=== PATIENT | female | born 1980 | race Two or more races ===

== ENCOUNTER → 2023-10-09 10:12 | Outpatient (REF) | payer OTHER, SELFPAY | LOC: HWRAD 10:12 | PROVIDERS: ATTENDING PHYSICIAN Family Medicine | DX: N83.209 Unspecified ovarian cyst, unspecified side (principal) | CPT/HCPCS: 76830; 76856 ==

== ENCOUNTER 2024-03-19 14:40 | Emergency (ER) | payer OTHER, SELFPAY ==
[2024-03-19 14:50] VITALS: BP 148/93
--- NOTE | 2024-03-19 15:00 | ED.PDOC.TRB ---
ED Provider Triage
<Sy Brasher Jr., PA-C - Last Filed: 03/19/24 15:01>
-
Patient seen by provider in Triage?: Seen in Triage
A medical screening examination has been initiated by a qualified medical provider. Based on the assessment performed at this time, it has been determined that an emergent medical condition may exist and the patient has been informed that further
medical evaluation and possible additional diagnostic testing may be needed.
HPI: This is a medical evaluation conducted in person to initiate diagnostic evaluation and provide initial therapeutics. Please see further documentation by the treating clinician.
GENERAL: Alert ,tearful
EYE: No visual abnormalities.
NECK: Trachea midline
ENT: No visible abnormalities.
LUNGS: No acute respiratory distress
NEUROLOGICAL: Alert and oriented
SKIN: no visible lesions.
MUSCULOSKELETAL: Moving extremities normally
PSYCH: Normal and appropriate interaction.
43-year-old female presenting to the emergency department today with concerns of 1 day of pelvic discomfort. Having heavy bleeding associated with what she believes is her menstrual cycle. Has had some discomfort with her cycles over the past few
months alternate fibroids. Today is much worse than usual. Last dose of Motrin yesterday. Here she does appear visibly uncomfortable no belly pain otherwise on examination. Patient will likely need ultrasound. Bleeding for further assessment
otherwise labs ordered as well.
<FANTA Garcia - Last Filed: 03/19/24 21:10>
-
A medical screening examination has been initiated by a qualified medical provider. Based on the assessment performed at this time, it has been determined that an emergent medical condition may exist and the patient has been informed that further
medical evaluation and possible additional diagnostic testing may be needed.
HPI: This is a medical evaluation conducted in person to initiate diagnostic evaluation and provide initial therapeutics. Please see further documentation by the treating clinician.
GENERAL: Alert ,tearful
EYE: No visual abnormalities.
NECK: Trachea midline
ENT: No visible abnormalities.
LUNGS: No acute respiratory distress
NEUROLOGICAL: Alert and oriented
SKIN: no visible lesions.
MUSCULOSKELETAL: Moving extremities normally
PSYCH: Normal and appropriate interaction.
43-year-old female presenting to the emergency department today with concerns of 1 day of pelvic discomfort. Having heavy bleeding associated with what she believes is her menstrual cycle. Has had some discomfort with her cycles over the past few
months alternate fibroids. Today is much worse than usual. Last dose of Motrin yesterday. Here she does appear visibly uncomfortable no belly pain otherwise on examination. Patient will likely need ultrasound. Bleeding for further assessment
otherwise labs ordered as well.
I did not evaluate provider in triage , Deanna Cherry NP
[2024-03-19] MEDS: TORADOL 15 MG IV (15:12)
[2024-03-19] MEDS: NSS 1000 IV (15:13)
[2024-03-19 15:15] LABS: % Basophils 0.3 % (0-2); % Immature Granulocytes 0.4 % (0-0.5); % Lymphocytes 31.1 % (20.5-51.1); % Monocytes 6.7 % (1.7-9.3); % Neutrophils 60.5 % (42.2-75.2); Absolute Eosinophils 0.1 10^3/uL (0-0.7); Absolute Lymphocytes 2.5 10^3/uL (1.2-3.4); Absolute Monocytes 0.5 10^3/uL (0.1-0.6); Absolute Neutrophils 4.8 10^3/uL (1.4-6.5); Hematocrit 36.6 % (37.0-47.0); Hemoglobin 12.6 g/dL (12.0-16.0); Mean Corp Hgb Conc. 34.4 g/dL (33.0-37.0); Mean Corpuscular Hgb 29.6 pg (27.0-31.0); Mean Corpuscular Volume 85.9 fL (81.0-99.0); Mean Platelet Volume 10.8 fL (7.4-10.4); Nucleated Red Blood Cells % 0 %; Platelet Count 255 10^3/uL (130-400); Red Blood Cell Count 4.26 10^6/uL (4.20-5.40); Red Cell Dist. Width 12.7 % (11.5-14.5); White Blood Cell Count 7.9 10^3/uL (4.8-10.8)
[2024-03-19 15:28] LABS: HCG, Serum Qualitative Screen Negative
[2024-03-19 15:33] LABS: ALT (SGPT) 13 U/L (0-35); AST (SGOT) 23 U/L (14-36); Albumin 4.8 g/dl (3.5-5.0); Alkaline Phosphatase 77 U/L (38-126); Blood Urea Nitrogen 7 mg/dl (7-17); Calcium 10.3 mg/dl (8.4-10.2); Carbon Dioxide 23 mmol/L (22-30); Chloride 105 mmol/L (98-107); Glucose 101 mg/dl (70-99); Potassium 4.4 mmol/L (3.5-5.1); Sodium 140 mmol/L (135-145); Total Bilirubin 0.5 mg/dl (0.2-1.3); Total Protein 7.5 g/dl (6.3-8.2); eGFR > 60.00
[2024-03-19 16:00] VITALS: BP 115/78
[2024-03-19] MEDS: NSS IV ×3 (16:30)
[2024-03-19 16:35] LABS: Urine Albumin Trace (Neg - Trace); Urine Bilirubin Negative (Negative); Urine Character Clear (Clear); Urine Glucose Negative (Negative); Urine Ketone Negative (Negative); Urine Leukocyte Negative (Negative); Urine Nitrite Negative (Negative); Urine Occult Blood 4+ (Negative); Urine Specific Gravity 1.005 (<1.030); Urine Urobilinogen Negative (Neg - 1+)
[2024-03-19 16:39] LABS: Urine Color Pink
--- NOTE | 2024-03-19 16:41 | ED.GENMED ---
History of Present Illness
General
Chief Complaint: Abdominal Pain
Source: patient
Exam Limitations: none
Time Seen by Provider: 03/19/24 15:36
Nursing documentation reviewed up to this point in time: agreed with
History of Present Illness
History of Present Illness:
Patient is a 43-year-old female who presents to the ER complaining of abdominal pain. She reports she has history of painful periods for about a year. She is followed by [facility] DR Almaraz. She reports has been taking
Motrin and Tylenol but they have not relieved her symptoms. She currently has her period and is complaining of a lot of lower abdominal pain. This is consistent with her typical period pain. She does report that she has been diagnosed with
fibroids in the past. She denies any fever or chills. She was told she could take control pills and is considering switching [facility] because she has not satisfied .
Past History
Past History
ED Past Medical History: Other (Kidney stone)
Social History
Tobacco: Non-smoker
Alcohol: None
Drug: None
Review of Systems
Review of Systems
Allergies reviewed?: Yes
Constitutional: Reports no symptoms
Respiratory: Reports no symptoms
Cardiac: Reports no symptoms
ABD/GI: Reports abdominal pain; Denies nausea, vomiting or diarrhea
: Reports no symptoms
Musculoskeletal: Reports no symptoms
Skin: Reports no symptoms
Neurological: Reports no symptoms
Psychiatric: Reports no symptoms
Phy Exam
General Physical Exam
General Presentation: no apparent distress
General age: appears stated age
General Skin: warm and dry
General Habitus: normal
General Mental: alert
General Hydration: appears well hydrated
Gastrointestinal Exam
Gastrointestinal Exam: soft and other (lower suprapubic tenderness )
Neurological Exam
Neurological Exam: alert and oriented x3
Musculoskeletal Exam
Musculoskeletal Exam: full ROM
Skin Exam
Skin Exam: normal color and warm/dry
Psychiatric Exam
Psychiatric Exam: normal mood/affect
Course
Orders/Labs/Results
Orders:
Orders
03/19/24 14:54
Ketorolac [Toradol] 30 mg IM NOW STA
Test Result ONCE
US Pelvis Only (non-obstetric) Urgent
Comment:
Reason For Exam: pelvic pain, bleeding
03/19/24 15:04
Complete Blood Count/With Diff Urgent
Comprehensive Metabolic Panel Urgent
HCG, Serum Qualitative Screen Urgent
03/19/24 15:10
Ketorolac [Toradol] 15 mg .ROUTE .STK-MED ONE
03/19/24 15:12
Ketorolac [Toradol] 15 mg IV NOW STA
03/19/24 15:15
0.9% Sodium Chloride 1000 ml [Nss] 1,000 ml IV 1,000 mls/hr
03/19/24 16:21
Urinalysis Reflex To Culture Urgent
Specimen Description:
Date Specimen was Collected: 03/19/24
Time Specimen was Collected: 16:20
Urine Microscopic Reflex Cult Urgent
03/19/24 16:41
Acetaminophen 1000MG/100Ml [Ofirmev] 1,000 mg in 100 ml .ROUTE .STK-MED
03/19/24 16:44
Acetaminophen 1000MG/100Ml [Ofirmev] 1,000 mg in 100 ml IV ONCE
Acetaminophen IV Indication:: ED Narcotic Naive Pt-ONCE
Abnormal Lab Results
03/19/24 03/19/24
15:04 16:21
Hct 36.6 L %
(37.0-47.0)
MPV 10.8 H fL
(7.4-10.4)
Glucose 101 H mg/dl
(70-99)
Calcium 10.3 H mg/dl
(8.4-10.2)
Ur Occult Blood Reflex 4+ A
(Negative)
Urine RBC 70-80 A /HPF
(0-2)
Urine Bacteria (Reflex) Few A
(Negative)
03/19/24 15:04
03/19/24 15:04
Vital Signs
Initial and Last Documented VS:
Initial Vital Signs
Temp Pulse Resp BP Pulse Ox
98.6 F 107 18 148/93 98
03/19/24 14:50 03/19/24 14:50 03/19/24 14:50 03/19/24 14:50 03/19/24 14:50
Last Documented Vital Signs
Temp Pulse Resp BP Pulse Ox
98.6 F 87 16 115/78 98
03/19/24 14:50 03/19/24 16:00 03/19/24 16:00 03/19/24 16:00 03/19/24 16:00
MDM/Problems Addressed
Differential Diagnosis Includes:
Not limited to dysmenorrhea, ovarian cyst, fibroids
MDM/Problems Addressed:
Patient has history of dysmenorrhea and has had painful periods for the past 1 year. She is followed by her [facility] for this. She tried control but felt this made her nauseous and she did not like it and did not help. She complains of
continued painful periods and has her period presently. She has been taking Motrin Tylenol at home. She presents awake alert no acute distress denies any fever chills. Patient with normal labs stable hemoglobin of 12.6; no UTI symptoms. 70 to 80
blood in urine likely contaminant from period.
No evidence for ovarian torsion or adnexal lesions uterine fibroids measuring up to 1.1 cm in the fundus.
I had a long discussion with patient regarding her 1 year history of painful. She is willing to stay at her [facility] practice but would request to see another provider at her practice. I discussed with patient alternate Motrin Tylenol and importance
of calling [facility] tomorrow morning to make an appointment for further treatment. She is stable for discharge home.
*Critical Care Note
Total Time (30-74mins, 75-104mins- exclusive of procedures): Not Applicable
Data Reviewed
Review of Other/Old Records Reveals: Radiology Studies (Previous ultrasound from September 2023 shows small focal myometrial masses most likely fibroids and a previous cyst that was seen in the past resolved)
ED Attending Note
-
Portions of this chart may have been created with voice recognition software.� Occasional wrong word or��sound alike� substitutions may have occurred due to the inherent limitations of voice recognition software.
Discharge Plan
Departure
Patient Disposition: Home (Routine Discharge)
Date of Disposition: 03/19/24
Time of Disposition: 18:13
Patient with high blood pressure during this ER visit?: Yes
Condition: Fair
Covid-19: Not Applicable
Discharge Problem:
Dysmenorrhea, unspecified
Instructions: Menstrual Cramps (DC)
Referrals:
Radha Lopez, [Active] -
Jessica Iqbal MD [Family Provider] -
Activity Restrictions/Additional Instructions:
As discussed may continue to alternate between ibuprofen and Tylenol. Call your [facility] in the morning to make an appointment soon as possible return if any worsening of symptoms.
Interventions
Interventions:
*Risk Screen - Suicide Last Done: 03/19/24 14:59
*General Assessment Last Done: 03/19/24 17:09
*Neglect/Abuse Screening Last Done: 03/19/24 14:59
ED- Fall Risk Assessment Last Done: 03/19/24 17:09
*ED COVID-19 Vaccine History Last Done: 03/19/24 14:50
*Nursing Disposition Last Done: 03/19/24 18:10
EI-Rdpuhb-Mhwhctaxpu Assessment Last Done: 03/19/24 17:09
Discharge Date and Time
Print Language: BAHAMIAN
[2024-03-19 16:42] LABS: Urine Red Blood Cell 70-80 /HPF (0-2); Urine White Cell 0-2 /HPF (0-5)
[2024-03-19 16:43] LABS: Urine Bacteria Few (Negative)
[2024-03-19] MEDS: OFIRMEV 100 IV (16:48)
== END 2024-03-19 18:17 | disposition home or self-care (01) ==
LOC: EMR 14:40
PROVIDERS: Physician Assistant; EMERGENCY PHYSICIAN Emergency Medicine; FAMILY PHYSICIAN Family Medicine
DX: R10.30 Lower abdominal pain, unspecified (principal); N94.6 Dysmenorrhea, unspecified; Z87.442 Personal history of urinary calculi
CPT/HCPCS: 99284; 76856; 80053; 81003; 81015; 84703; 85025

== ENCOUNTER → 2024-06-12 15:13 | Outpatient (REF) | payer OTHER, SELFPAY | LOC: WDC 15:13 | PROVIDERS: ATTENDING PHYSICIAN Family Medicine | DX: Z12.31 Encounter for screening mammogram for malignant neoplasm of breast (principal) | CPT/HCPCS: 77063; 77067 ==

== ENCOUNTER → 2024-11-04 10:26 | Outpatient (REF) | payer OTHER, SELFPAY | LOC: HWRAD 10:26 | PROVIDERS: ATTENDING PHYSICIAN Family Medicine | DX: N92.1 Excessive and frequent menstruation with irregular cycle (principal); R10.2 Pelvic and perineal pain | CPT/HCPCS: 76830; 76856 ==

== ENCOUNTER → 2025-06-15 15:12 | Outpatient (REF) | payer OTHER, SELFPAY | LOC: WDC 15:12 | PROVIDERS: ATTENDING PHYSICIAN Family Medicine | DX: Z12.31 Encounter for screening mammogram for malignant neoplasm of breast (principal) | CPT/HCPCS: 77063; 77067 ==